=== PATIENT | female | born 1940 | race African-American/Black ===

== ENCOUNTER 2021-01-13 07:04 | Inpatient (IN) | payer OTHER ==
[~2021-01-13] VITALS: Ht 160 cm; Wt 70.3 kg
[2021-01-13 07:47] LABS: BASOPHILS % 0.4 % (0.0-2.0); HEMATOCRIT. 44.1 % (36.0-48.0); HEMOGLOBIN. 15.4 g/dL (12.0-16.0); LYMPHOCYTES % 16.9 % (20.0-50.0); MEAN CORPUSCULAR HEMOGLOBIN 28.8 pg (28.0-32.0); MEAN CORPUSCULAR VOLUME 82.7 fL (81.0-99.0); MEAN PLATELET VOLUME 8.6 fl (7.4-10.4); MONOCYTES % 13.6 % (2.0-8.0); NEUTROPHILS % 69.1 % (40.0-76.0); PLATELET 356 x1000/uL (130-400); RED BLOOD CELL COUNT 5.33 mill/uL (4.2-5.4); RED CELL DISTRIBUTION WIDTH 13.3 % (11.6-14.6)
[2021-01-13 07:52] LABS: CHLORIDE 94 mEq/L (98-107)
[2021-01-13 07:57] LABS: ETHANOL BLOOD < 10 mg/dL
[2021-01-13 08:09] LABS: INR 1.1; PROTHROMBIN TIME 11.8 sec (9.6-11.0)
[2021-01-13] MEDS ORDERED: SODIUM CHLORIDE 0.9% 1,000 ML IV ONE (08:15)
[2021-01-13 08:30] LABS: CREATINE KINASE 7780 IU/L (26-192)
[2021-01-13] MEDS ORDERED: SODIUM CHLORIDE 0.9% 1,000 ML IV NR (08:45)
[2021-01-13] MEDS ORDERED: PIPERACILLIN/TAZOBACTAM 3.375GM/50ML PREMIX IV NR (08:45)
[2021-01-13] MEDS ORDERED: VANCOMYCIN 1 G PREMIX 200 ML IV SCH (08:45)
[2021-01-13 09:10] LABS: CLARITY URINE CLEAR (CLEAR); COLOR URINE YELLOW (YELLOW); KETONES URINE 1+ (NEGATIVE); LEUKOCYTE ESTERASE URINE NEGATIVE (NEGATIVE); NITRITE URINE NEGATIVE (NEGATIVE); OCCULT BLOOD URINE 2+ (NEGATIVE); PH URINE 6.5 (4.5-8.0); PROTEIN URINE NEGATIVE (NEGATIVE); SPECIFIC GRAVITY URINE 1.015 (1.005-1.030); UROBILINOGEN URINE 0.2 E.U./dL (0.2-1.0)
[2021-01-13] MEDS ORDERED: ASPIRIN 325MG EC TABLET PO NR (09:30)
[2021-01-13 09:32] LABS: *AMPHETAMINES SCREEN URINE NEGATIVE (NEGATIVE); *BARBITURATES SCREEN URINE NEGATIVE (NEGATIVE); *BENZODIAZEPINES SCREEN URINE PRESUMTIVE POSITIVE (NEGATIVE)
[2021-01-13 09:33] LABS: *COCAINE SCREEN URINE NEGATIVE (NEGATIVE); CANNABINOID URINE SCREEN NEGATIVE (NEGATIVE); METHADONE URINE SCREEN NEGATIVE (NEGATIVE); OPIATES URINE SCREEN PRESUMTIVE POSITIVE (NEGATIVE); PHENCYCLIDINE URINE SCREEN NEGATIVE (NEGATIVE)
[2021-01-13] MEDS ORDERED: GUAIFENESIN 200MG/10ML SUGAR FREE UDC PO PRN (11:15)
[2021-01-13] MEDS ORDERED: LORAZEPAM 0.5MG TABLET PO PRN (11:15)
[2021-01-13] MEDS ORDERED: DEXTROSE 50% WATER 50ML SYRINGE IV PRN (11:15)
[2021-01-13] MEDS ORDERED: ACETAMINOPHEN 650MG SUPP PR PRN (11:15)
[2021-01-13] MEDS ORDERED: MAGNESIUM/ALUMINUM HYDROXIDE/SIMETHICONE 30ML UDC PO PRN (11:15)
[2021-01-13] MEDS ORDERED: ONDANSETRON HCL 4MG/2ML INJ IV PRN (11:15)
[2021-01-13] MEDS ORDERED: POTASSIUM CHLORIDE INJ 40 MEQ in DEXT 5% WATER 250 ML IV NR (11:15)
[2021-01-13] MEDS ORDERED: CLONIDINE 0.1MG TABLET PO PRN (11:15)
[2021-01-13] MEDS ORDERED: NA PHOS,M-B/NA PHOS,DI-BA ENEMA 118ML PR PRN (11:15)
[2021-01-13] MEDS ORDERED: DIPHENHYDRAMINE 50MG/ML VIAL IV PRN (11:15)
[2021-01-13] MEDS ORDERED: DOCUSATE SODIUM 100MG CAPSULE PO PRN (11:15)
[2021-01-13] MEDS ORDERED: HYDROCODONE/ACETAMINOPHEN 5/325MG TABLET PO PRN (11:15)
[2021-01-13 11:37] LABS: BG CARBOXYHEMOGLOBIN 0.7 % (0.5-1.5); BG DEOXYHEMOGLOBIN 3.3 % (0.0-5.0); BG FRACTION INSPIRED OXYGEN 21; BG METHEMOGLOBIN 0.3 % (0.0-1.5); BG OXYGEN SATURATION 96.7 % (92.0-98.5); BG OXYHEMOGLOBIN 95.7 % (94.0-97.0); BG PCO2 27.2 mmHg (35.0-45.0); BG PH 7.414 (7.350-7.450); BG SAMPLE SITE RIGHT RADIAL; BG TOTAL HEMOGLOBIN 13.5 g/dL (12.0-18.0); BG VENT MODE ROOM AIR
[2021-01-13] MEDS: DEXT 5%/0.9% NACL 1,000 ML IV SCH (11:49)
[2021-01-13] MEDS: FAMOTIDINE 20MG/2ML VIAL IV SCH (11:50)
[2021-01-13] MEDS: INSULIN LISPRO 100 UNITS/ML SUBCUT SCH ×3 (13:20→21:00)
[2021-01-13] MEDS: BLOOD SUGAR DIAGNOSTIC STRIP TEST SCH ×3 (13:30→21:26)
[2021-01-13] MEDS ORDERED: PIPERACILLIN/TAZOBACTAM 3.375 G in DEXTROSE 5% WATER 50 ML IV SCH (14:00)
[2021-01-13] MEDS ORDERED: METO25TA6 PO (15:17)
[2021-01-13] MEDS ORDERED: ALPR-340 PO (15:17)
[2021-01-13] MEDS ORDERED: CARI350T27 PO (15:17)
[2021-01-13] MEDS ORDERED: TRAM50TA3 PO (15:17)
[2021-01-13 15:28] VITALS: BP 113/69
[2021-01-13 16:00] VITALS: BP_SYST 113; BP_SYST 121; BP_DIAS 64; BP_DIAS 69
[2021-01-13] MEDS: METOPROLOL TARTRATE 25MG TABLET PO SCH ×2 (16:30→21:30)
[2021-01-13] MEDS: PIPERACILLIN/TAZOBACTAM 3.375 G in DEXTROSE 5% WATER 50 ML IV SCH (18:17)
[2021-01-13 20:40] VITALS: BP 118/52
[2021-01-13 22:20] LABS: CREATINE KINASE MB FRACTION 78.3 ng/mL (0.5-3.6)
[2021-01-14] MEDS: DEXT 5%/0.9% NACL 1,000 ML IV SCH ×3 (00:09→23:13)
[2021-01-14 00:41] VITALS: BP 121/76
[2021-01-14] MEDS: PIPERACILLIN/TAZOBACTAM 3.375 G in DEXTROSE 5% WATER 50 ML IV SCH ×2 (01:15→10:48)
[2021-01-14 04:00] VITALS: BP 122/61
[2021-01-14] MEDS: IPRATROPIUM/ALBUTEROL 0.5-3(2.5)MG/3ML NEB NEB PRN ×2 (04:13→21:03)
[2021-01-14] MEDS: INSULIN LISPRO 100 UNITS/ML SUBCUT SCH ×4 (06:22→20:25)
[2021-01-14] MEDS: BLOOD SUGAR DIAGNOSTIC STRIP TEST SCH ×4 (06:22→20:25)
[2021-01-14 07:23] LABS: SODIUM URINE RANDOM 160 mEq/L
[2021-01-14 07:24] LABS: HEMOGLOBIN. 14.8 g/dL (12.0-16.0); MEAN CORPUSCULAR HEMOGLOBIN 27.9 pg (28.0-32.0); MEAN PLATELET VOLUME 9.3 fl (7.4-10.4); PLATELET 275 x1000/uL (130-400); RED CELL DISTRIBUTION WIDTH 13.7 % (11.6-14.6)
[2021-01-14 08:00] VITALS: BP 138/78
[2021-01-14] MEDS: METOPROLOL TARTRATE 25MG TABLET PO SCH ×2 (08:53→20:41)
[2021-01-14] MEDS: FAMOTIDINE 20MG/2ML VIAL IV SCH (08:53)
[2021-01-14 10:39] LABS: CHLORIDE 102 mEq/L (98-107)
[2021-01-14 10:50] LABS: LDL CHOLESTEROL 31 mg/dL (5-100)
[2021-01-14 10:58] LABS: HDL CHOLESTEROL 56 mg/dL (40-59); T4 FREE 1.03 ng/dL (0.76-1.46)
[2021-01-14] MEDS ORDERED: ENOXAPARIN 30MG/0.3ML SYR SUBCUT SCH (11:30)
[2021-01-14 12:00] VITALS: BP 133/87
[2021-01-14 14:03] LABS: PLATELET ESTIMATE NORMAL
[2021-01-14] MEDS: ACETAMINOPHEN 325MG TABLET PO PRN (14:10)
[2021-01-14 16:00] VITALS: BP 83/58
[2021-01-14 16:47] LABS: HEPATITIS B SURFACE ANTIGEN NEGATIVE
[2021-01-14] MEDS: PIPERACILLIN/TAZOBACTAM 2.25G in DEXTROSE 5% WATER 50ML IV SCH ×2 (17:04→23:14)
[2021-01-14 17:17] LABS: HEPATITIS A AB IGM NEGATIVE (NEGATIVE)
[2021-01-14 20:00] VITALS: BP 116/76
[2021-01-15] VITALS (7 sets, daily range): BP systolic 98–122; BP diastolic 56–90
[2021-01-15] MEDS: PIPERACILLIN/TAZOBACTAM 2.25G in DEXTROSE 5% WATER 50ML IV SCH ×3 (05:19→18:14)
[2021-01-15] MEDS: INSULIN LISPRO 100 UNITS/ML SUBCUT SCH ×4 (06:24→21:00)
[2021-01-15] MEDS: BLOOD SUGAR DIAGNOSTIC STRIP TEST SCH ×4 (06:24→21:00)
[2021-01-15 07:57] LABS: BASOPHILS % 0.5 % (0.0-2.0); EOSINOPHILS % 2.2 % (0.0-5.0); HEMATOCRIT. 35.2 % (36.0-48.0); HEMOGLOBIN. 12.3 g/dL (12.0-16.0); LYMPHOCYTES % 31.9 % (20.0-50.0); MEAN CORPUSCULAR HEMOGLOBIN 28.5 pg (28.0-32.0); MEAN CORPUSCULAR VOLUME 81.6 fL (81.0-99.0); MEAN PLATELET VOLUME 8.5 fl (7.4-10.4); MONOCYTES % 13.2 % (2.0-8.0); NEUTROPHILS % 52.2 % (40.0-76.0); PLATELET 203 x1000/uL (130-400); RED BLOOD CELL COUNT 4.31 mill/uL (4.2-5.4); RED CELL DISTRIBUTION WIDTH 13.4 % (11.6-14.6)
[2021-01-15 08:00] LABS: CHLORIDE 102 mEq/L (98-107)
[2021-01-15 08:13] LABS: CREATINE KINASE MB FRACTION 14.9 ng/mL (0.5-3.6)
[2021-01-15] MEDS: ENOXAPARIN 40MG/0.4ML SYR SUBCUT SCH (08:24)
[2021-01-15] MEDS: FAMOTIDINE 20MG/2ML VIAL IV SCH (08:24)
[2021-01-15] MEDS: METOPROLOL TARTRATE 25MG TABLET PO SCH ×2 (08:24→21:00)
[2021-01-15 08:38] LABS: CREATINE KINASE 6489 IU/L (26-192)
[2021-01-15] MEDS: DEXT 5%/0.9% NACL 1,000 ML IV SCH (10:35)
[2021-01-15] MEDS ORDERED: POTASSIUM CHLORIDE 20MEQ TABLET SR PO SCH (13:00)
[2021-01-15] MEDS: SODIUM CHLORIDE 0.9% 1,000 ML IV SCH (15:14)
[2021-01-15] MEDS: ACETAMINOPHEN 325MG TABLET PO PRN (16:54)
[2021-01-16] VITALS: BP 173/96
[2021-01-16] MEDS: PIPERACILLIN/TAZOBACTAM 2.25G in DEXTROSE 5% WATER 50ML IV SCH ×5 (00:55→23:59)
[2021-01-16 04:00] VITALS: BP 138/98
[2021-01-16] MEDS: BLOOD SUGAR DIAGNOSTIC STRIP TEST SCH ×4 (06:45→21:22)
[2021-01-16] MEDS: INSULIN LISPRO 100 UNITS/ML SUBCUT SCH ×4 (07:02→21:00)
[2021-01-16 08:00] VITALS: BP 112/63
[2021-01-16] MEDS: SODIUM CHLORIDE 0.9% 1,000 ML IV SCH ×2 (08:34→16:16)
[2021-01-16] MEDS: FAMOTIDINE 20MG/2ML VIAL IV SCH (08:34)
[2021-01-16] MEDS: ENOXAPARIN 40MG/0.4ML SYR SUBCUT SCH (08:34)
[2021-01-16] MEDS: METOPROLOL TARTRATE 25MG TABLET PO SCH ×2 (08:34→21:23)
[2021-01-16 12:00] VITALS: BP 118/62
[2021-01-16 16:00] VITALS: BP 128/78
[2021-01-16] MEDS: ASPIRIN 81MG EC TABLET PO SCH (16:13)
[2021-01-16 16:53] LABS: HEMATOCRIT. 34.7 % (36.0-48.0); MEAN CORPUSCULAR HEMOGLOBIN 28.4 pg (28.0-32.0); MEAN CORPUSCULAR VOLUME 81.9 fL (81.0-99.0); MEAN PLATELET VOLUME 8.5 fl (7.4-10.4); PLATELET 222 x1000/uL (130-400); RED BLOOD CELL COUNT 4.24 mill/uL (4.2-5.4); RED CELL DISTRIBUTION WIDTH 13.4 % (11.6-14.6)
[2021-01-16 16:56] LABS: CHLORIDE 105 mEq/L (98-107)
[2021-01-16] MEDS ORDERED: POTASSIUM CHLORIDE 20MEQ TABLET SR PO NR (17:15)
[2021-01-16 20:00] VITALS: BP 127/71
[2021-01-16 20:50] LABS: PLATELET ESTIMATE NORMAL
[2021-01-17] VITALS (7 sets, daily range): BP systolic 110–141; BP diastolic 57–100
[2021-01-17] MEDS: SODIUM CHLORIDE 0.9% 1,000 ML IV SCH ×2 (05:45→20:58)
[2021-01-17] MEDS ORDERED: SODIUM CHLORIDE 0.45% 1,000 ML IV ONE (06:00)
[2021-01-17] MEDS: PIPERACILLIN/TAZOBACTAM 2.25G in DEXTROSE 5% WATER 50ML IV SCH ×3 (06:07→18:07)
[2021-01-17] MEDS: BLOOD SUGAR DIAGNOSTIC STRIP TEST SCH ×4 (06:07→20:59)
[2021-01-17] MEDS: INSULIN LISPRO 100 UNITS/ML SUBCUT SCH ×4 (06:07→20:59)
[2021-01-17 07:03] LABS: BASOPHILS % 0.7 % (0.0-2.0); EOSINOPHILS % 6.2 % (0.0-5.0); HEMATOCRIT. 36.6 % (36.0-48.0); HEMOGLOBIN. 12.2 g/dL (12.0-16.0); LYMPHOCYTES % 42.5 % (20.0-50.0); MEAN CORPUSCULAR HEMOGLOBIN 27.4 pg (28.0-32.0); MEAN CORPUSCULAR VOLUME 82.6 fL (81.0-99.0); MEAN PLATELET VOLUME 8.1 fl (7.4-10.4); MONOCYTES % 12.1 % (2.0-8.0); NEUTROPHILS % 38.5 % (40.0-76.0); PLATELET 236 x1000/uL (130-400); RED BLOOD CELL COUNT 4.43 mill/uL (4.2-5.4)
[2021-01-17 07:27] LABS: CHLORIDE 106 mEq/L (98-107)
[2021-01-17] MEDS: FAMOTIDINE 20MG/2ML VIAL IV SCH (09:06)
[2021-01-17] MEDS: METOPROLOL TARTRATE 25MG TABLET PO SCH (09:06)
[2021-01-17] MEDS: ASPIRIN 81MG EC TABLET PO SCH (09:06)
[2021-01-17] MEDS: IPRATROPIUM/ALBUTEROL 0.5-3(2.5)MG/3ML NEB NEB PRN (12:08)
[2021-01-17] MEDS ORDERED: ASPI-1497 MT (13:28)
[2021-01-17] MEDS ORDERED: P20 PO (13:28)
[2021-01-17] MEDS ORDERED: ALBU90AE INH (13:28)
[2021-01-17] MEDS ORDERED: NEBI2.5T2 MT (13:28)
[2021-01-17] MEDS ORDERED: AMOX-424 MT (13:28)
[2021-01-17] MEDS ORDERED: METHYLPREDNISOLONE SOD SUCC 40 MG/ML VIAL IV NR (13:30)
[2021-01-17] MEDS ORDERED: IPRATROPIUM/ALBUTEROL 0.5-3(2.5)MG/3ML NEB HHN NR (13:30)
[2021-01-17] MEDS: IPRATROPIUM/ALBUTEROL 0.5-3(2.5)MG/3ML NEB HHN SCH (20:58)
[2021-01-18] VITALS: BP 137/62
[2021-01-18] MEDS: PIPERACILLIN/TAZOBACTAM 2.25G in DEXTROSE 5% WATER 50ML IV SCH ×4 (00:55→18:30)
[2021-01-18 01:35] LABS: CLARITY URINE CLEAR (CLEAR); COLOR URINE YELLOW (YELLOW); KETONES URINE 1+ (NEGATIVE); LEUKOCYTE ESTERASE URINE NEGATIVE (NEGATIVE); NITRITE URINE NEGATIVE (NEGATIVE); OCCULT BLOOD URINE TRACE (NEGATIVE); PH URINE 5.5 (4.5-8.0); PROTEIN URINE NEGATIVE (NEGATIVE); SPECIFIC GRAVITY URINE 1.013 (1.005-1.030); UROBILINOGEN URINE 0.2 E.U./dL (0.2-1.0)
[2021-01-18] MEDS: IPRATROPIUM/ALBUTEROL 0.5-3(2.5)MG/3ML NEB HHN SCH ×4 (02:28→20:40)
[2021-01-18 04:00] VITALS: BP 117/68
[2021-01-18] MEDS: BLOOD SUGAR DIAGNOSTIC STRIP TEST SCH ×4 (05:50→20:46)
[2021-01-18] MEDS: INSULIN LISPRO 100 UNITS/ML SUBCUT SCH ×4 (06:10→20:47)
[2021-01-18 06:47] LABS: VITAMIN B12 SERUM 1435 pg/mL (211-911)
[2021-01-18 08:00] VITALS: BP 126/60
[2021-01-18] MEDS: SODIUM CHLORIDE 0.9% 1,000 ML IV SCH ×2 (08:47→21:51)
[2021-01-18] MEDS: FAMOTIDINE 20MG/2ML VIAL IV SCH (08:48)
[2021-01-18] MEDS: ASPIRIN 81MG EC TABLET PO SCH (08:48)
[2021-01-18] MEDS ORDERED: NEBIVOLOL HCL 5 MG TABLET PO SCH ×2 (09:00→13:00)
[2021-01-18 12:00] VITALS: BP 118/53
[2021-01-18] MEDS: DILTIAZEM HCL 30MG TABLET PO SCH ×2 (13:00→21:16)
[2021-01-18 13:06] LABS: BASOPHILS % 0.3 % (0.0-2.0); HEMATOCRIT. 33.2 % (36.0-48.0); HEMOGLOBIN. 11.5 g/dL (12.0-16.0); LYMPHOCYTES % 8.7 % (20.0-50.0); MEAN CORPUSCULAR HEMOGLOBIN 28.2 pg (28.0-32.0); MEAN CORPUSCULAR VOLUME 81.4 fL (81.0-99.0); PLATELET 288 x1000/uL (130-400); RED BLOOD CELL COUNT 4.08 mill/uL (4.2-5.4); RED CELL DISTRIBUTION WIDTH 13.5 % (11.6-14.6)
[2021-01-18 13:11] LABS: CHLORIDE 108 mEq/L (98-107)
[2021-01-18] MEDS ORDERED: POTASSIUM CHLORIDE 20MEQ TABLET SR PO NR (14:45)
[2021-01-18] MEDS ORDERED: LACTULOSE 20G/30ML UDC PO NR (15:00)
[2021-01-18] MEDS ORDERED: MAGNESIUM OXIDE 400MG TABLET PO SCH (15:30)
[2021-01-18 16:00] VITALS: BP 122/60
[2021-01-18] MEDS ORDERED: MAGNESIUM 1 G PREMIX 100 ML IV SCH (17:00)
[2021-01-18 18:48] LABS: CREATINE KINASE 910 IU/L (26-192)
[2021-01-18 20:00] VITALS: BP 93/70
[2021-01-18] MEDS ORDERED: MAGNESIUM 1 G PREMIX 100 ML IV NR (23:30)
[2021-01-19] VITALS: BP 155/84
[2021-01-19] MEDS: IPRATROPIUM/ALBUTEROL 0.5-3(2.5)MG/3ML NEB HHN SCH ×3 (01:35→14:07)
[2021-01-19 04:00] VITALS: BP 132/70
[2021-01-19 05:11] LABS: CHLORIDE 109 mEq/L (98-107)
[2021-01-19 05:23] LABS: BASOPHILS % 0.2 % (0.0-2.0); EOSINOPHILS % 0.6 % (0.0-5.0); HEMATOCRIT. 34.1 % (36.0-48.0); HEMOGLOBIN. 11.3 g/dL (12.0-16.0); LYMPHOCYTES % 20.5 % (20.0-50.0); MEAN CORPUSCULAR HEMOGLOBIN 27.4 pg (28.0-32.0); MEAN CORPUSCULAR VOLUME 82.7 fL (81.0-99.0); MEAN PLATELET VOLUME 8.3 fl (7.4-10.4); MONOCYTES % 5.8 % (2.0-8.0); NEUTROPHILS % 72.9 % (40.0-76.0); PLATELET 282 x1000/uL (130-400); RED BLOOD CELL COUNT 4.13 mill/uL (4.2-5.4); RED CELL DISTRIBUTION WIDTH 13.7 % (11.6-14.6)
[2021-01-19] MEDS: DILTIAZEM HCL 30MG TABLET PO SCH ×3 (06:00→21:45)
[2021-01-19] MEDS: BLOOD SUGAR DIAGNOSTIC STRIP TEST SCH ×4 (06:24→21:36)
[2021-01-19] MEDS: INSULIN LISPRO 100 UNITS/ML SUBCUT SCH ×4 (07:15→21:00)
[2021-01-19 08:00] VITALS: BP 150/79
[2021-01-19] MEDS: ASPIRIN 81MG EC TABLET PO SCH (08:56)
[2021-01-19] MEDS: NEBIVOLOL HCL 5 MG TABLET PO SCH (08:56)
[2021-01-19] MEDS: FAMOTIDINE 20MG TABLET PO SCH (08:56)
[2021-01-19] MEDS ORDERED: POTASSIUM CHLORIDE 20MEQ TABLET SR PO NR (10:30)
[2021-01-19 12:00] VITALS: BP 130/60
[2021-01-19] MEDS: SODIUM CHLORIDE 0.9% 1,000 ML IV SCH (13:00)
[2021-01-19 17:00] VITALS: BP 132/66
[2021-01-19 20:00] VITALS: BP 108/60
[2021-01-19] MEDS: IPRATROPIUM/ALBUTEROL 0.5-3(2.5)MG/3ML NEB NEB PRN (22:14)
[2021-01-20] VITALS: BP 130/72
[2021-01-20] MEDS: SODIUM CHLORIDE 0.9% 1,000 ML IV SCH ×2 (02:45→14:59)
[2021-01-20 04:00] VITALS: BP 144/92
[2021-01-20] MEDS: DILTIAZEM HCL 30MG TABLET PO SCH ×3 (05:19→21:43)
[2021-01-20 06:28] LABS: HEMATOCRIT 34.4 % (36.0-48.0); HEMOGLOBIN 11.6 g/dL (12.0-16.0); MEAN CORPUSCULAR HEMOGLOBIN 27.5 pg (28.0-32.0); MEAN CORPUSCULAR VOLUME 81.9 fL (81.0-99.0); PLATELET 340 x1000/uL (130-400); RED CELL DISTRIBUTION WIDTH 13.7 % (11.6-14.6)
[2021-01-20 06:36] LABS: CHLORIDE 106 mEq/L (98-107)
[2021-01-20] MEDS: INSULIN LISPRO 100 UNITS/ML SUBCUT SCH ×4 (06:52→21:00)
[2021-01-20] MEDS: BLOOD SUGAR DIAGNOSTIC STRIP TEST SCH ×4 (06:52→21:48)
[2021-01-20] MEDS: FAMOTIDINE 20MG TABLET PO SCH (08:36)
[2021-01-20] MEDS: NEBIVOLOL HCL 5 MG TABLET PO SCH (08:36)
[2021-01-20] MEDS: ASPIRIN 81MG EC TABLET PO SCH (08:36)
[2021-01-20] MEDS: ACETAMINOPHEN 325MG TABLET PO PRN (10:35)
[2021-01-20] MEDS ORDERED: POTASSIUM CHLORIDE 20MEQ TABLET SR PO SCH (14:30)
[2021-01-20] MEDS: IPRATROPIUM/ALBUTEROL 0.5-3(2.5)MG/3ML NEB NEB PRN (16:37)
[2021-01-20 20:00] VITALS: BP 134/84
[2021-01-21] VITALS: BP 145/75
[2021-01-21] MEDS: SODIUM CHLORIDE 0.9% 1,000 ML IV SCH ×2 (03:14→17:38)
[2021-01-21 04:00] VITALS: BP 138/62
[2021-01-21] MEDS: DILTIAZEM HCL 30MG TABLET PO SCH ×3 (06:21→21:19)
[2021-01-21] MEDS: BLOOD SUGAR DIAGNOSTIC STRIP TEST SCH ×4 (06:21→21:18)
[2021-01-21] MEDS: INSULIN LISPRO 100 UNITS/ML SUBCUT SCH ×4 (06:29→21:00)
[2021-01-21 06:55] LABS: CHLORIDE 100 mEq/L (98-107)
[2021-01-21 07:21] LABS: BASOPHILS % 0.9 % (0.0-2.0); EOSINOPHILS % 3.9 % (0.0-5.0); HEMATOCRIT. 37.5 % (36.0-48.0); HEMOGLOBIN. 12.5 g/dL (12.0-16.0); LYMPHOCYTES % 21.6 % (20.0-50.0); MEAN CORPUSCULAR HEMOGLOBIN 27.5 pg (28.0-32.0); MEAN CORPUSCULAR VOLUME 82.2 fL (81.0-99.0); MEAN PLATELET VOLUME 8.5 fl (7.4-10.4); MONOCYTES % 4.5 % (2.0-8.0); NEUTROPHILS % 69.1 % (40.0-76.0); PLATELET 261 x1000/uL (130-400); RED BLOOD CELL COUNT 4.56 mill/uL (4.2-5.4); RED CELL DISTRIBUTION WIDTH 13.5 % (11.6-14.6)
[2021-01-21 08:00] VITALS: BP 139/76
[2021-01-21] MEDS: ASPIRIN 81MG EC TABLET PO SCH (08:46)
[2021-01-21] MEDS: NEBIVOLOL HCL 5 MG TABLET PO SCH (08:46)
[2021-01-21] MEDS: FAMOTIDINE 20MG TABLET PO SCH (08:46)
[2021-01-21] MEDS ORDERED: POTASSIUM CHLORIDE 20MEQ TABLET SR PO NR (11:15)
[2021-01-21 12:00] VITALS: BP 137/77
[2021-01-21] MEDS ORDERED: MAGNESIUM 2 G PREMIX 50 ML IV NR (12:00)
[2021-01-21 16:00] VITALS: BP 131/89
[2021-01-21 20:00] VITALS: BP 134/73
[2021-01-21] MEDS: ACETAMINOPHEN 325MG TABLET PO PRN (20:14)
[2021-01-22] VITALS: BP 137/63
[2021-01-22 04:00] VITALS: BP 144/74
[2021-01-22] MEDS: ACETAMINOPHEN 325MG TABLET PO PRN (04:15)
[2021-01-22] MEDS: SODIUM CHLORIDE 0.9% 1,000 ML IV SCH ×2 (06:20→19:54)
[2021-01-22] MEDS: DILTIAZEM HCL 30MG TABLET PO SCH ×3 (06:21→21:08)
[2021-01-22] MEDS: BLOOD SUGAR DIAGNOSTIC STRIP TEST SCH ×4 (06:45→20:04)
[2021-01-22] MEDS: INSULIN LISPRO 100 UNITS/ML SUBCUT SCH ×4 (07:15→21:00)
[2021-01-22 08:26] VITALS: BP 103/51
[2021-01-22] MEDS: PIPERACILLIN/TAZOBACTAM 3.375 G in DEXTROSE 5% WATER 50 ML IV SCH ×3 (08:33→20:15)
[2021-01-22] MEDS: FAMOTIDINE 20MG TABLET PO SCH (08:33)
[2021-01-22] MEDS: NEBIVOLOL HCL 5 MG TABLET PO SCH (08:33)
[2021-01-22] MEDS: ASPIRIN 81MG EC TABLET PO SCH (08:34)
[2021-01-22 10:06] LABS: BASOPHILS % 0.6 % (0.0-2.0); HEMATOCRIT. 34.6 % (36.0-48.0); LYMPHOCYTES % 18.1 % (20.0-50.0); MEAN CORPUSCULAR HEMOGLOBIN 28.4 pg (28.0-32.0); MEAN CORPUSCULAR VOLUME 81.5 fL (81.0-99.0); MEAN PLATELET VOLUME 7.6 fl (7.4-10.4); MONOCYTES % 9.6 % (2.0-8.0); NEUTROPHILS % 68.7 % (40.0-76.0); PLATELET 421 x1000/uL (130-400); RED BLOOD CELL COUNT 4.24 mill/uL (4.2-5.4); RED CELL DISTRIBUTION WIDTH 13.4 % (11.6-14.6)
[2021-01-22 10:31] LABS: CHLORIDE 97 mEq/L (98-107)
[2021-01-22 12:00] VITALS: BP 153/78
[2021-01-22 16:00] VITALS: BP 104/40
[2021-01-22 20:00] VITALS: BP 127/67
[2021-01-23] VITALS: BP 131/69
[2021-01-23] MEDS: PIPERACILLIN/TAZOBACTAM 3.375 G in DEXTROSE 5% WATER 50 ML IV SCH ×4 (02:53→21:55)
[2021-01-23 04:00] VITALS: BP 113/54
[2021-01-23] MEDS: ACETAMINOPHEN 325MG TABLET PO PRN (04:36)
[2021-01-23] MEDS: BLOOD SUGAR DIAGNOSTIC STRIP TEST SCH ×4 (06:07→21:00)
[2021-01-23] MEDS: DILTIAZEM HCL 30MG TABLET PO SCH ×3 (06:13→22:00)
[2021-01-23] MEDS: INSULIN LISPRO 100 UNITS/ML SUBCUT SCH ×4 (06:16→21:00)
[2021-01-23 08:00] VITALS: BP 99/72
[2021-01-23] MEDS: SODIUM CHLORIDE 0.9% 1,000 ML IV SCH ×2 (08:54→21:55)
[2021-01-23] MEDS: ASPIRIN 81MG EC TABLET PO SCH (08:55)
[2021-01-23] MEDS: NEBIVOLOL HCL 5 MG TABLET PO SCH (08:55)
[2021-01-23] MEDS: FAMOTIDINE 20MG TABLET PO SCH (08:55)
[2021-01-23 12:19] LABS: BASOPHILS % 0.6 % (0.0-2.0); EOSINOPHILS % 3.4 % (0.0-5.0); HEMATOCRIT. 31.5 % (36.0-48.0); HEMOGLOBIN. 10.9 g/dL (12.0-16.0); LYMPHOCYTES % 20.6 % (20.0-50.0); MEAN CORPUSCULAR HEMOGLOBIN 28.2 pg (28.0-32.0); MEAN CORPUSCULAR VOLUME 81.8 fL (81.0-99.0); MEAN PLATELET VOLUME 7.2 fl (7.4-10.4); MONOCYTES % 12.6 % (2.0-8.0); NEUTROPHILS % 62.8 % (40.0-76.0); PLATELET 425 x1000/uL (130-400); RED BLOOD CELL COUNT 3.85 mill/uL (4.2-5.4); RED CELL DISTRIBUTION WIDTH 13.5 % (11.6-14.6)
[2021-01-23 12:23] VITALS: BP 95/50
[2021-01-23 12:51] LABS: CHLORIDE 101 mEq/L (98-107)
[2021-01-23 16:12] VITALS: BP 112/57
[2021-01-23 16:53] LABS: CLARITY URINE CLEAR (CLEAR); COLOR URINE YELLOW (YELLOW); KETONES URINE NEGATIVE (NEGATIVE); LEUKOCYTE ESTERASE URINE TRACE (NEGATIVE); NITRITE URINE NEGATIVE (NEGATIVE); OCCULT BLOOD URINE 1+ (NEGATIVE); PROTEIN URINE NEGATIVE (NEGATIVE); SPECIFIC GRAVITY URINE 1.006 (1.005-1.030); UROBILINOGEN URINE 0.2 E.U./dL (0.2-1.0)
[2021-01-23 20:00] VITALS: BP 106/73
[2021-01-24] VITALS: BP 113/61
[2021-01-24] MEDS: PIPERACILLIN/TAZOBACTAM 3.375 G in DEXTROSE 5% WATER 50 ML IV SCH ×4 (02:41→20:21)
[2021-01-24 04:00] VITALS: BP 108/63
[2021-01-24] MEDS: DILTIAZEM HCL 30MG TABLET PO SCH ×3 (05:05→22:08)
[2021-01-24 05:38] LABS: CHLORIDE 103 mEq/L (98-107)
[2021-01-24 06:30] LABS: BASOPHILS % 0.5 % (0.0-2.0); EOSINOPHILS % 4.2 % (0.0-5.0); HEMATOCRIT. 34.3 % (36.0-48.0); HEMOGLOBIN. 11.6 g/dL (12.0-16.0); LYMPHOCYTES % 27.2 % (20.0-50.0); MEAN CORPUSCULAR HEMOGLOBIN 27.6 pg (28.0-32.0); MEAN CORPUSCULAR VOLUME 81.4 fL (81.0-99.0); MEAN PLATELET VOLUME 7.3 fl (7.4-10.4); MONOCYTES % 11.9 % (2.0-8.0); NEUTROPHILS % 56.2 % (40.0-76.0); PLATELET 482 x1000/uL (130-400); RED BLOOD CELL COUNT 4.21 mill/uL (4.2-5.4); RED CELL DISTRIBUTION WIDTH 13.6 % (11.6-14.6)
[2021-01-24] MEDS: BLOOD SUGAR DIAGNOSTIC STRIP TEST SCH ×4 (06:39→20:22)
[2021-01-24] MEDS: INSULIN LISPRO 100 UNITS/ML SUBCUT SCH ×4 (06:39→20:22)
[2021-01-24 08:27] VITALS: BP 109/69
[2021-01-24] MEDS: NEBIVOLOL HCL 5 MG TABLET PO SCH (09:00)
[2021-01-24] MEDS: ASPIRIN 81MG EC TABLET PO SCH (09:27)
[2021-01-24] MEDS: FAMOTIDINE 20MG TABLET PO SCH (09:27)
[2021-01-24 12:00] VITALS: BP 96/63
[2021-01-24] MEDS: SODIUM CHLORIDE 0.9% 1,000 ML IV SCH (14:04)
[2021-01-24 16:00] VITALS: BP 109/61
[2021-01-24] MEDS: ACETAMINOPHEN 325MG TABLET PO PRN (16:25)
[2021-01-24] MEDS ORDERED: TRAMADOL 50MG TABLET PO PRN (16:45)
[2021-01-24 20:00] VITALS: BP 121/72
[2021-01-25] VITALS: BP 123/61
[2021-01-25] MEDS: SODIUM CHLORIDE 0.9% 1,000 ML IV SCH ×2 (00:33→15:10)
[2021-01-25] MEDS: PIPERACILLIN/TAZOBACTAM 3.375 G in DEXTROSE 5% WATER 50 ML IV SCH ×4 (02:12→20:19)
[2021-01-25 04:00] VITALS: BP 139/66
[2021-01-25] MEDS: DILTIAZEM HCL 30MG TABLET PO SCH ×3 (06:06→22:20)
[2021-01-25] MEDS: BLOOD SUGAR DIAGNOSTIC STRIP TEST SCH ×4 (06:06→20:32)
[2021-01-25] MEDS: INSULIN LISPRO 100 UNITS/ML SUBCUT SCH ×4 (07:15→20:33)
[2021-01-25 08:13] VITALS: BP 114/61
[2021-01-25] MEDS: NEBIVOLOL HCL 5 MG TABLET PO SCH (08:48)
[2021-01-25] MEDS: FAMOTIDINE 20MG TABLET PO SCH (08:48)
[2021-01-25] MEDS: ASPIRIN 81MG EC TABLET PO SCH (08:48)
[2021-01-25 12:09] VITALS: BP 106/65
[2021-01-25 16:00] VITALS: BP 103/70
[2021-01-25 20:00] VITALS: BP 128/70
[2021-01-26] VITALS: BP 121/56
[2021-01-26] MEDS: PIPERACILLIN/TAZOBACTAM 3.375 G in DEXTROSE 5% WATER 50 ML IV SCH ×4 (03:09→20:56)
[2021-01-26] MEDS: SODIUM CHLORIDE 0.9% 1,000 ML IV SCH ×2 (03:13→15:40)
[2021-01-26 04:00] VITALS: BP 125/60
[2021-01-26] MEDS: DILTIAZEM HCL 30MG TABLET PO SCH ×3 (06:00→21:00)
[2021-01-26] MEDS: BLOOD SUGAR DIAGNOSTIC STRIP TEST SCH ×4 (06:10→20:48)
[2021-01-26] MEDS: INSULIN LISPRO 100 UNITS/ML SUBCUT SCH ×4 (06:20→20:48)
[2021-01-26 08:00] VITALS: BP 148/62
[2021-01-26] MEDS: ASPIRIN 81MG EC TABLET PO SCH (08:44)
[2021-01-26] MEDS: NEBIVOLOL HCL 5 MG TABLET PO SCH (08:44)
[2021-01-26] MEDS: FAMOTIDINE 20MG TABLET PO SCH (08:44)
[2021-01-26 12:03] VITALS: BP 134/75
[2021-01-26 16:04] VITALS: BP 142/88
[2021-01-26 20:00] VITALS: BP 152/73
[2021-01-27] VITALS: BP 159/69
[2021-01-27 04:00] VITALS: BP 130/73
[2021-01-27] MEDS: SODIUM CHLORIDE 0.9% 1,000 ML IV SCH (04:55)
[2021-01-27] MEDS: DILTIAZEM HCL 30MG TABLET PO SCH ×2 (05:45→15:44)
[2021-01-27] MEDS: BLOOD SUGAR DIAGNOSTIC STRIP TEST SCH ×3 (05:50→17:30)
[2021-01-27] MEDS: INSULIN LISPRO 100 UNITS/ML SUBCUT SCH ×3 (07:15→17:15)
[2021-01-27 08:00] VITALS: BP 135/73
[2021-01-27] MEDS: NEBIVOLOL HCL 5 MG TABLET PO SCH (09:07)
[2021-01-27] MEDS: ASPIRIN 81MG EC TABLET PO SCH (09:07)
[2021-01-27] MEDS: FAMOTIDINE 20MG TABLET PO SCH (09:08)
[2021-01-27 12:00] VITALS: BP 119/60
[2021-01-27 16:00] VITALS: BP 125/73
[2021-01-27] MEDS: IPRATROPIUM/ALBUTEROL 0.5-3(2.5)MG/3ML NEB NEB PRN (17:24)
[2021-01-27 18:27] VITALS: BP 125/73
== END 2021-01-27 21:55 | DRG 280 ==
LOC: ER 07:17 → 5WST 11:04 → EDBEDREQTM 11:06 → EDBEDREQ 11:06 → ENRESERV 13:00 → SUPCPDRO 13:37
PROVIDERS: ADMIT Internal Medicine; ATTEND Internal Medicine
DX: I21.4 Non-ST elevation (NSTEMI) myocardial infarction (principal); I50.33 Acute on chronic diastolic (congestive) heart failure; G93.40 Encephalopathy, unspecified; I69.351 Hemiplegia and hemiparesis following cerebral infarction affecting right dominant side; M62.82 Rhabdomyolysis; N17.9 Acute kidney failure, unspecified; E87.2 Acidosis; E22.2 Syndrome of inappropriate secretion of antidiuretic hormone; E87.6 Hypokalemia; R33.9 Retention of urine, unspecified; R74.01 Elevation of levels of liver transaminase levels; D35.2 Benign neoplasm of pituitary gland; F41.9 Anxiety disorder, unspecified; Z20.822 Contact with and (suspected) exposure to COVID-19; E11.9 Type 2 diabetes mellitus without complications; I11.0 Hypertensive heart disease with heart failure; K57.90 Diverticulosis of intestine, part unspecified, without perforation or abscess without bleeding; Z79.82 Long term (current) use of aspirin; Z79.899 Other long term (current) drug therapy; Z82.49 Family history of ischemic heart disease and other diseases of the circulatory system; D72.829 Elevated white blood cell count, unspecified; E80.6 Other disorders of bilirubin metabolism; R00.0 Tachycardia, unspecified
CPT/HCPCS: 36415; 36600; 70551; 71045; 74176; 76700; 80048; 80053; 80061; 80076; 80305; 80320; 81003; 82140; 82375; 82533; 82550; 82553; 82607; 82805; 82962; 83036; 83605; 83735; 83880; 83930; 83935; 84145; 84300; 84439; 84443; 84484; 85025; 85027; 86705; 86709; 86803; 86850; 86900; 87340; 87426; 92610; 93005; 93306; 93970; 94640; 97110; 97162; 97530; 97535; 99291; A6261; C1893; J1200; J1650; J1815; J2405; J2543; J2920; J3370; J3475; J3480; J3490; J7030; J7040; J7042; J7060; A4315; G0480